=== PATIENT | female | born 1985 | race African-American/Black ===

== ENCOUNTER 2022-02-08 08:18 | Emergency (ER) | payer MEDICAID ==
[~2022-02-08] VITALS: Ht 160 cm; Wt 112.0 kg
--- NOTE | 2022-02-08 08:47 | ED Back Pain ---
General Chief Complaint: Back Problems Stated Complaint: LOWER AND MID BACK PAIN Source of Information: Patient Exam Limitations: No Limitations History of Present Illness Date Seen by Provider: Feb 08, 2022 Time Seen by Provider: 08:35 Initial Comments 36-year-old female presents to the emergency department today for low back pain, left arm heaviness as well as increased urinary frequency. Regarding her low back pain and left arm heaviness, she recently moved here 4 to 6 months ago and was seeking care for this while she was living elsewhere. She was found to have scoliosis which is thought to be causative. Symptoms have been off and on for at least 2 years in which case. Her low back pain is described as dull throbbing with episodes of sharp stabbing pain without radiation. No lower extremity weakness numbness or tingling. No saddle anesthesia or loss of bowel or bladder control. Regarding her left arm, it feels heavy. She will occasionally get a sharp twinge of electric type pain in her left neck that then shoots down her arm and causes it to be heavy. She denies any specific weakness numbness or tingling in her arm. She does take gabapentin and Mobic for her symptoms. Regarding her urine, she complains of some increased urinary frequency and some suprapubic burning type sensation. Allergies and Home Medications Allergies Coded Allergies: No Known Drug Allergies (Unverified , 02/08/22) Patient Home Medication List Home Medication List Reviewed: Yes Cephalexin (Cephalexin) 500 Mg Tablet, 500 MG PO BID Prescribed by: OSVALDO MCBRIDE MD on 02/08/22 0940 Review of Systems Constitutional: no symptoms reported EENTM: no symptoms reported Respiratory: no symptoms reported Cardiovascular: no symptoms reported Gastrointestinal: no symptoms reported Genitourinary: dysuria, frequency : No Musculoskeletal: back pain (Diffuse tenderness to palpation about her back from the musculature, lateral muscles and midline. There is no focal tenderness. No step-off deformity or bruising.), other (Left arm heaviness) Skin: no symptoms reported Psychiatric/Neurological: No Symptoms Reported Past Tihwybk-[id number]-Kacpbp Hx Patient Social History Tobacco Use?: No Use of E-Cig and/or Vaping dev: No Substance use?: No Alcohol Use?: No Family Medical History Reviewed Nursing Family Hx No Pertinent Family Hx Physical Exam Vital Signs Vital Signs - First Documented 02/08/22 08:29 Temp 36.4 Pulse 89 Resp 14 B/P (MAP) 116/100 (105) Pulse Ox 100 O2 Delivery Room Air Capillary Refill : Height, Weight, BMI Height: '" Weight: lbs. oz. kg; BMI Method: General Appearance: No Apparent Distress HEENT: PERRL/EOMI, Pharynx Normal Neck: Normal Inspection, Non Tender, Supple Cardiovascular: Regular Rate, Rhythm, No Edema, No Gallop, No JVD, No Murmur, Normal Peripheral Pulses Respiratory: Chest Non Tender, Lungs Clear, Normal Breath Sounds, No Accessory Muscle Use, No Respiratory Distress Gastrointestinal: Normal Bowel Sounds, No Organomegaly, No Pulsatile Mass, Soft, Tenderness (Mild tenderness palpation in the suprapubic region. No rebound or guarding. No mass organomegaly. No skin changes.) Back: Other (Diffuse tenderness throughout the musculature, paraspinal area and midline spine of the back thoracic region and lumbar regions bilaterally. No focal tenderness. No skin changes) Extremity: Normal Capillary Refill, Normal Inspection, Normal Range of Motion, Non Tender, No Calf Tenderness, No Pedal Edema, Other (Left lower extremities neurovascular and sensory intact. 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 Norm as Tested Skin: Normal Color, Warm/Dry Progress/Results/Core Measures Results/Orders Lab Results Laboratory Tests Test 02/08/22 08:45 Range/Units Urine Color YELLOW Urine Clarity CLEAR Urine pH 6.5 5-9 Urine Specific [place] 1.020 1.016-1.022 Urine Protein NEGATIVE NEGATIVE Urine Glucose (UA) NEGATIVE NEGATIVE Urine Ketones NEGATIVE NEGATIVE Urine Nitrite NEGATIVE NEGATIVE Urine Bilirubin NEGATIVE NEGATIVE Urine Urobilinogen 0.2 < = 1.0 MG/DL Urine Leukocyte Esterase TRACE H NEGATIVE Urine RBC (Auto) NEGATIVE NEGATIVE Urine RBC NONE /HPF Urine WBC 2-5 /HPF Urine Squamous Epithelial Cells 0-2 /HPF Urine Crystals NONE /LPF Urine Bacteria FEW H /HPF Urine Casts NONE /LPF Urine Mucus NEGATIVE /LPF Urine Culture Indicated YES My Orders Orders - OSVALDO MCBRIDE DO Ua Culture If Indicated (02/08/22 08:41) Ketorolac Injection (Toradol Injection) (02/08/22 09:00) Urine Culture (02/08/22 08:45) Medications Given in ED Current Medications Medications Dose Ordered Sig/Myron Route Start Time Stop Time Status Last Admin Dose Admin Ketorolac Tromethamine 15 mg ONCE ONCE IM 02/08/22 09:00 02/08/22 09:01 DC 02/08/22 09:13 15 MG Vital Signs/I&O 02/08/22 02/08/22 08:29 09:34 Temp 36.4 Pulse 89 Resp 14 B/P (MAP) 116/100 (105) 120/89 Pulse Ox 100 O2 Delivery Room Air Departure Communication (Admissions) Patient is hemodynamically stable. No red flag symptoms. Given antibiotics for UTI, likely mild. Regarding her chronic symptoms, doing conservative care measures. Recommendations for follow-up in the future. Discharged in stable condition. Impression Primary Impression: Musculoskeletal pain Additional Impression: UTI (urinary tract infection) Qualified Codes: N30.00 - Acute cystitis without hematuria Disposition: HOME, SELF-CARE Condition: Stable Departure-Patient Inst. Referrals: NO,LOCAL PHYSICIAN (PCP/Family) Primary Care Physician Patient Instructions: Urinary Tract Infections in Adults Add. Discharge Instructions: Take the antibiotics as prescribed until they are gone. Follow up with your primary doctor for further evaluation of your chronic back and arm symptoms. Return to the ER for any severe concerns. All discharge instructions reviewed with patient and/or family. Voiced understanding. Scripts Cephalexin (Cephalexin) 500 Mg Tablet 500 MG PO BID for 5 Days, #5 TAB Prov: OSVALDO MCBRIDE DO 02/08/22 OSVALDO MCBRIDE DO Feb 08, 2022 08:47
[2022-02-08 08:54] LABS: BILIRUBIN,URINE NEGATIVE (NEGATIVE); CLARITY,URINE CLEAR; COLOR,URINE YELLOW; GLUCOSE, URINE (UA) NEGATIVE (NEGATIVE); KETONES,URINE NEGATIVE (NEGATIVE); LEUKOCYTE ESTERASE ,URINE TRACE (NEGATIVE); NITRITE,URINE NEGATIVE (NEGATIVE); PH,URINE 6.5 (5-9); PROTEIN,URINE NEGATIVE (NEGATIVE)
[2022-02-08] MEDS ORDERED: KETOROLAC 15 MG/ML VIAL IM ONE (09:00)
[2022-02-08] MEDS ORDERED: KETOROLAC 15 MG/ML VIAL IVP ONE (09:00)
[2022-02-08 09:02] LABS: BACTERIA,URINE FEW /HPF; SQUAMOUS EPITHELIAL CELL,UR 0-2 /HPF
[2022-02-08] MEDS ORDERED: CEPH500T PO (09:13)
[2022-02-08 09:34] VITALS: BP 120/89
== END 2022-02-08 09:34 | disposition home or self-care (01) ==
LOC: ER 08:22
DX: N39.0 Urinary tract infection, site not specified (principal); M79.602 Pain in left arm
CPT/HCPCS: 81000; 87088; 99284

== ENCOUNTER → 2022-09-26 | Outpatient (CLI) | payer MEDICAID ==
[~2022-09-26] MED LIST: CEPH500T PO
--- NOTE | 2022-09-26 17:26 | Diagnostic Imaging Report ---
INDICATION: Back pain. FINDINGS: There is a mild lumbar levoscoliosis. Lateral alignment is normal. The vertebral body heights are maintained. Disc space height loss at L5-S1. There is also lower facet arthropathy at the L4-L5 and L5-S1 level. There is no identified pars defect. IMPRESSION: Mild levoscoliosis with normal lateral alignment. Lower lumbar facet arthropathy without pars defect. Disc space height loss most significant at L5-S1. Vertebral body heights are maintained. Dictated by: Dictated on workstation # [id number]
--- NOTE | 2022-09-26 17:26 | Diagnostic Imaging Report ---
INDICATION: Back pain. FINDINGS: There is a thoracic dextroscoliosis. Lateral alignment is normal. Vertebral body heights maintained. All pedicles are evident on the AP view. Heart is normal. The visualized portion of lungs clear. IMPRESSION: Thoracic dextroscoliosis with normal lateral alignment. Vertebral body heights appear maintained. Dictated by: Dictated on workstation # [id number]
== END ==
LOC: RAD 14:09
PROVIDERS: ATTEND Family Medicine
DX: M41.84 Other forms of scoliosis, thoracic region (principal); M41.86 Other forms of scoliosis, lumbar region; M47.816 Spondylosis without myelopathy or radiculopathy, lumbar region; M51.37 Other intervertebral disc degeneration, lumbosacral region
CPT/HCPCS: 72072; 72100

== ENCOUNTER 2022-11-07 02:21 | Emergency (ER) | payer MEDICAID ==
[2022-11-07 03:15] VITALS: BP 139/83
[2022-11-07] MEDS ORDERED: ACETAMINOPHEN 500 MG TABLET PO ONE (05:30)
[2022-11-07] MEDS ORDERED: IBUPROFEN 800 MG TABLET PO ONE (05:30)
--- NOTE | 2022-11-07 18:33 | ED General ---
General Chief Complaint: COVID19 Suspect/Confirmed Stated Complaint: HEADACHE/CHILLS/BODYACHES Nursing Triage Note: TO ED VIA POV AND AMUBLATORY TO ER ROOM 6 STATING, "I HAVE COVID SYMPTOMS" AND HEADACHE AND CHILLS. PT TOOK MUCINEX AND IBUPROFEN AT 2000 LAST NOC. Source of Information: Patient History of Present Illness Date Seen by Provider: Nov 07, 2022 Time Seen by Provider: 02:35 Initial Comments PT ARRIVES VIA POV FROM HOME PT STATES "I HAVE COVID SYMPTOMS" PT BEGAN FEELING ILL THIS AFTERNOON AT WORK--WORKS AT [employer] C/O SUBJECTIVE FEVER AND CHILLS C/O HEADACHE C/O BODY ACHES NO COUGH OR NASAL CONGESTION NO SORE THROAT NO GI SYMPTOMS NO SHORTNESS OF BREATH PT STATES THE WHOLE HOUSEHOLD HAS BEEN ILL WITH SAME, BUT NONE HAVE BEEN TO DR OR HAD ANY TESTING DONE. SHE STATES THEY ARE ALL GETTING BETTER SHE HAS NOT DONE A HOME COVID TEST PT TOOK IBUPROFEN 400 MG AND MUCINEX AT 2000 TONIGHT. SHE HAS NOT TAKEN ANYTHING ELSE FOR SYMPTOMS PT IS NOT COVID OR FLU VACCINATED PT STATES HER ONLY MEDICAL PROBLEM IS ARTHRITIS DENIES SMOKING, ALCOHOL OR DRUG USE LMP--2 WEEKS AGO. NORMAL. S/P BTL. PCP: DR. MATTHEWS Allergies and Home Medications Allergies Coded Allergies: No Known Drug Allergies (Unverified , 02/08/22) Patient Home Medication List Home Medication List Reviewed: Yes Cephalexin (Cephalexin) 500 Mg Tablet, 500 MG PO BID Prescribed by: OSVALDO MCBRIDE MD on 02/08/22 4099 Review of Systems Review of Systems Constitutional: see HPI, chills, fever EENTM: no symptoms reported Respiratory: no symptoms reported Cardiovascular: no symptoms reported Gastrointestinal: no symptoms reported Genitourinary: no symptoms reported Musculoskeletal: see HPI Skin: no symptoms reported Psychiatric/Neurological: See HPI Past Mehwcfu-[id number]-Wasqbv Hx Patient Social History Tobacco Use?: No Substance use?: No Alcohol Use?: Yes Alcohol Frequency: Once in a while Past Medical History Surgeries: Yes ( X 2) Section, Tubal Ligation Respiratory: No Cardiac: No Neurological: No : 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 oz. 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 Norm as Tested Skin: Normal Color (PT IS BLACK), Warm/Dry Progress/Results/Core Measures Suspected Sepsis SIRS Temperature: Pulse: 97 Respiratory Rate: 16 Blood Pressure 139 /83 Mean: 101 Results/Orders Lab Results Laboratory Tests Test 11/07/22 02:40 Range/Units Influenza Type A (RT-PCR) Not Detected Not Detecte Influenza Type B (RT-PCR) Not Detected Not Detecte SARS-CoV-2 RNA (RT-PCR) Detected H Not Detecte My Orders Orders - TAMMIE PRUETT DO Covid 19 Inhouse Test (11/07/22 02:40) Influenza A And B By Pcr (11/07/22 02:40) Acetaminophen Tablet (Acetaminophen Ta (11/07/22 05:30) Ibuprofen Tablet (Ibuprofen Tablet) (11/07/22 05:30) Vital Signs/I&O 11/07/22 11/07/22 11/07/22 11/07/22 02:33 02:33 02:50 02:50 Temp 38.3 38.3 38.3 Pulse 97 Resp 16 B/P (MAP) 139/83 (101) Pulse Ox 100 O2 Delivery Room Air Room Air 11/07/22 03:15 Temp 38.3 Pulse 97 Resp 16 B/P (MAP) 139/83 Pulse Ox 100 O2 Delivery Room Air Capillary Refill : Less Than 3 Seconds Blood Pressure Mean: 101 Progress Note : Progress Note PPE WORN VITALS ON ARRIVAL: TEMP 38.3=101, HR 97, RR 16, BP 139/83, O2 SAT 99% ON ROOM AIR COVID POSITIVE FLU NEGATIVE GIVEN TYLENOL AND MOTRIN DISCUSSED ANTICIPATED COURSE, SYMPTOMATIC TREATMENT, QUARANTINE, NEED FOR FOLLOW UP AND RETURN PRECAUTIONS PT SYMPTOMS ARE MILD, AND PT DOES NOT HAVE ANY RESPIRATORY SYMPTOMS, AND DOES NOT SMOKE OR HAVE ANY HISTORY OF RESPIRATORY PROBLEMS. DOES NOT WARRANT ANTIVIRAL THERAPY AT THIS TIME. PT SEEN DURING COMPUTER DOWN TIME. Departure Impression Primary Impression: COVID-19 virus infection Disposition: 01 HOME, SELF-CARE Condition: Stable Departure-Patient Inst. Decision time for Depature: 03:15 Referrals: SHEA MATTHEWS DO (PCP) Primary Care Physician Patient Instructions: COVID-19 ED TAMMIE PRUETT DO Nov 07, 2022 18:32
== END 2022-11-07 03:15 | disposition home or self-care (01) ==
LOC: EDUNIT# 02:21 → ER 02:22
DX: U07.1 COVID-19 (principal); R50.9 Fever, unspecified; R51.9 Headache, unspecified; E66.9 Obesity, unspecified; Z28.310 Unvaccinated for COVID-19; Z68.41 Body mass index [BMI] 40.0-44.9, adult
CPT/HCPCS: 87636; 99283